=== PATIENT | male | born 2000 | race Caucasian/White ===

== ENCOUNTER 2021-04-21 20:27 | Emergency (ER) | payer OTHER ==
[2021-04-21] MEDS ORDERED: AMOXICILLIN500 M2 PO (22:22)
== END 2021-04-21 22:32 | disposition home or self-care (01) ==
LOC: FER 20:27
DX: J02.0 Streptococcal pharyngitis (principal); F17.200 Nicotine dependence, unspecified, uncomplicated
CPT/HCPCS: 87880; 99283; J0561

== ENCOUNTER 2022-06-19 08:30 | Emergency (ER) | payer OTHER ==
[~2022-06-19 08:30] MED LIST: AMOXICILLIN500 M2 PO
[2022-06-19] MEDS ORDERED: ONDANSETRON ODT4 MG PO (10:16)
== END 2022-06-19 10:31 | disposition home or self-care (01) ==
LOC: FER 08:30
DX: U07.1 COVID-19 (principal); F17.290 Nicotine dependence, other tobacco product, uncomplicated; Z28.310 Unvaccinated for COVID-19
CPT/HCPCS: 99283; U0002